=== PATIENT | male | born 1935 | race Caucasian/White ===

== ENCOUNTER 2016-03-07 11:30 | Observation (INO) | payer MEDICARE ==
[2016-03-07 12:02] LABS: ABSOLUTE NEUTROPHIL COUNT 4.2 K/mm3 (1.8-7.7); BASO % 0.2 % (0.2-1.0); EOS # 0.2 (0.0-0.5); EOS % 3.8 % (0.9-2.9); HEMATOCRIT 31.8 % (32.0-52.0); HEMOGLOBIN 10.7 gm/l (14.0-18.0); IMM NEUT% 0.2 % (0-1); LYMPH # 1.3 (1.0-4.8); LYMPH % 20.1 % (15-45); MEAN CELL VOLUME 108.5 fl (80.0-94.0); MEAN CORPUSCULAR HEMOGLOBIN 36.5 pg (27.0-31.0); MEAN CORPUSCULAR HGB CONC 33.6 g/dl (33.0-37.0); MEAN PLATELET VOLUME 10.8 fl (7.4-10.4); MONO # 0.7 (0.0-0.8); MONO % 10.3 % (4-12); NEUT % 65.4 % (43-75); PLATELET COUNT 74 K/mm3 (130-400); RED CELL DISTRIBUTION WIDTH 15.1 % (11.5-14.5)
[2016-03-07 12:19] LABS: ALB/GLOB RATIO 1.1 (>1.0); ALBUMIN 3.8 gm/dL (3.5-5.7); CALCIUM 9.6 mg/dL (8.6-10.3); MAGNESIUM 1.6 mg/dL (1.9-2.7)
[2016-03-07] MEDS ORDERED: LACTATED RINGERS 1,000 ML ONE (12:24)
[2016-03-07] MEDS ORDERED: MAGNESIUM SULFATE 1 G/100 ML 200 ML IV ONE (12:25)
--- NOTE | 2016-03-07 13:03 | RAD ---
Exam: Two-view chest COMPARISON: None INDICATION: Weakness for 2 days with cold symptoms. Cough. FINDINGS: AP and lateral views of the chest were obtained. Dual-lead pacer is present. Cardiac silhouette is within normal limits. Lungs are well-inflated. There is no focal airspace disease or pleural effusion. Bones of the chest wall within normal limits. A few bridging osteophytes are noted within the thoracic spine. IMPRESSION: No acute pulmonary process.
[2016-03-07 14:36] LABS: URINE BILIRUBIN NEGATIVE (NEGATIVE); URINE BLOOD NEGATIVE (NEGATIVE); URINE GLUCOSE (UA) NEGATIVE (NEGATIVE); URINE LEUKOCYTE ESTERASE NEGATIVE (NEGATIVE); URINE NITRITE NEGATIVE (NEGATIVE); URINE UROBILINOGEN NORMAL (0-1 mg/dl)
[2016-03-07 14:46] LABS: URINE PROTEIN NEGATIVE (NEGATIVE)
[2016-03-07 14:53] LABS: URINE APPEARANCE CLEAR; URINE COLOR DARK YELLOW
[2016-03-07] MEDS ORDERED: BLISTEX LIPSTICK 1 EACH TP PRN (15:50)
[2016-03-07] MEDS ORDERED: MENTHOL/CETYLPYRD 1 EACH LOZENGE PO PRN (15:50)
[2016-03-07] MEDS ORDERED: MAGNESIUM HYDROXIDE 30 ML UDCUP PO PRN (15:50)
[2016-03-07] MEDS ORDERED: SODIUM CHLORIDE 0.9% 100 ML IV PRN (15:50)
[2016-03-07] MEDS ORDERED: BISACODYL 10 MG SUP PR PRN (15:50)
[2016-03-07] MEDS ORDERED: BISACODYL 5 MG TABLET.EC PO PRN (15:50)
[2016-03-07] MEDS ORDERED: ACETAMINOPHEN 325 MG TABLET PO PRN (15:50)
[2016-03-07] MEDS ORDERED: PUMP TUBING ONE (16:34)
[2016-03-07 17:12] VITALS: BMI 23.5
[2016-03-07] MEDS: SODIUM CHLORIDE 0.9% 1,000 ML IV SCH (17:51)
[2016-03-07] MEDS ORDERED: POLYVINYL ALCOHOL 1.4% (TEARS) 300 GTTS/BOT SOLN.DROP OS PRN (18:09)
[2016-03-07] MEDS ORDERED: CALCIUM CARBONATE 500 MG TAB.CHEW PO PRN (19:28)
[2016-03-07] MEDS ORDERED: PREGABALIN 75 MG CAP PO SCH (21:00)
[2016-03-07] MEDS: PREGABALIN 50 MG CAP PO SCH (21:19)
[2016-03-07] MEDS: VALACYCLOVIR 500 MG TABLET PO SCH (21:19)
[2016-03-07] MEDS: DOCUSATE SODIUM 100 MG CAPSULE PO SCH (21:19)
--- NOTE | 2016-03-07 22:11 | HP ---
CHELSIE HERRING [id number] DATE OF ADMISSION: 03/07/2016 CHIEF COMPLAINT: Weakness. 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 He has had upper respiratory infection symptoms since Friday or Friday, with nasal congestion and worsening of his chronic cough. He has had progressive weakness in the last 48 hours such that he has been unable to ambulate without assistance, and normally he is independent with his activities of daily living. REVIEW OF SYSTEMS: He denies any fevers or chills. He has had some low-grade temps. He has had nasal congestion, cough and myalgias. His cough is chronic, worsened and productive. He denies chest pain. He has had no wheezing or shortness of breath. No lower extremity edema and no palpitations. He denies nausea, vomiting, abdominal pain, diarrhea or constipation. He does complain just of generalized myalgias and generalized weakness. He denies headaches, fainting, blackouts or seizures. No documented falls. No new urinary complaints, but does have benign prostatic hypertrophy and nocturia. His review of systems is otherwise negative. PAST MEDICAL HISTORY: Significant for: 1. 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 The exact diagnosis is unclear. His first diagnosis was treated about ten years ago and he was told he had recurrent disease last week, with plans to go back on chemotherapy here soon. 2. He has a history of a pacemaker, unknown indications, but no prior history of coronary artery disease. 3. He had severe shingles involving the left eye and face last March, with some postherpetic neuralgia and some visual damage as a result of the disease, followed by Dr. Chester. He has been recently diagnosed with chronic kidney disease, the etiology at this point is not clear, and it is unclear if he has had any workup. 4. He has had a history of chronic essential hypertension. 5. He has had a history of emphysema. 6. The history of skin cancers. 7. Remote history of depression. PAST SURGICAL HISTORY: Significant for: 1. Skin surgeries for skin cancers. 2 He had a pacemaker placed in January of 2015. 3. He had a screening colonoscopy sometime in the . 4. Bilateral cataract surgeries. ALLERGIES: Reported to hydrocodone or Vicodin, which caused intractable vomiting. FAMILY HISTORY: Notable for a father who had coronary artery disease in his 70's. Mother lived to be in her late 80's. There are really no significant medical problems that run in the family. SOCIAL HISTORY: The patient is and lives with his . One of their sons lives at home. He has four sons and one female child. He is supposed to use a cane, but does not. He had a walker, but does not use it, and has been resistant to using any medical assistive devices. His primary care provider is Dr. Tarun Euceda. He does have a [id number] history of smoking, and he quit 27 years ago. He denies alcohol use currently. CODE STATUS: His code status is full code at this time. PHYSICAL EXAMINATION: VITAL SIGNS: Temperature 98.7. Pulse 58. Blood pressure 135/62. Respirations 16. Oxygen saturations are 95% on room air. Body mass index is 23.5 and weight is 70.1 kilograms. GENERAL: This is an elderly male in no acute distress. HEENT: His are pupils equal, round and reactive to light. No obvious corneal lesions are seen. 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 No active drainage. NECK: Supple, without lymphadenopathy or thyromegaly. LUNGS: Clear to auscultation bilaterally. CARDIOVASCULAR: Reveals a regular rate and rhythm, without a murmur. ABDOMEN: Soft, nontender and nondistended, with positive bowel sounds. EXTREMITIES: Show no peripheral edema. Dorsalis pedis pulses are 2+ bilaterally. SKIN: Warm, dry and intact, except for the lesion on the scalp as I mentioned. NEUROLOGIC: Exam is nonfocal. DIAGNOSTIC IMAGING STUDIES: Included a chest x-ray, which showed no acute cardiopulmonary process. His cardiac silhouette is within normal limits. LABORATORY STUDIES: Included a CBC showing a white count of 6.3, hemoglobin of 10.7 and a platelet count of 74,000. Normal differential. Lactate was slightly elevated at 2.6. Chemistry profile showed a sodium of 132, potassium 4.5, carbon dioxide 22, BUN of 39, creatinine 1.8, glucose 167, magnesium slightly low at 1.6. Liver function tests are normal. Troponin-I is less than 0.01. B-type natriuretic peptide is 175. Lipase is 31. Albumin and globulin are both normal. Urine is slightly concentrated, with a specific gravity of 1.020, otherwise unremarkable. Influenza A and B antigens are both negative. EKG: Shows a paced rhythm. ASSESSMENT: 1. Patient has generalized weakness. I suspect this is multifactorial. 2. He does have evidence of an upper respiratory infection, likely viral. 3. He has evidence of dehydration, and both of these conditions may be contributing to his weakness. 4. He does have a history of some type of hematological malignancy, with evidence of thrombocytopenia on his laboratory studies. We are to obtain records from Dr. Dutta tomorrow. I doubt this is significant cause for his current symptoms and he is being cared for this as an outpatient, and do not anticipate further treatment or workup at this time. 5. He has a history of some chronic kidney disease, which has been recently diagnosed, assuming it is chronic, I do not have a baseline creatinine, but Dr. Dutta's office told them his kidneys were working at about 40%. Because of this being relatively new, I am going to go ahead and get a bladder and renal ultrasound tomorrow. 6. He has a lactic acidosis. I do not think this is related to any infectious etiology, but more likely related to his malignancy, his chronic kidney disease or dehydration. 7. He has mild hypomagnesemia, which has been replaced in the emergency department. 8. 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 9. He has some mild emphysema, but is not hypoxic or have any respiratory distress at this time. PLAN: For observation overnight, with hydration. Follow-up labs in the morning. We will get PT and OT to evaluate and treat the patient tomorrow to help determine a safe discharge plan. VTE risk is considered low. Further treatment and recommendations will depend on his hospital course. cc: Dr. Tarun Dutta
[2016-03-08] MEDS: SODIUM CHLORIDE 0.9% 1,000 ML IV SCH (01:30)
[2016-03-08 06:43] LABS: ABSOLUTE NEUTROPHIL COUNT 1.5 K/mm3 (1.8-7.7); BASO % 0.6 % (0.2-1.0); EOS # 0.2 (0.0-0.5); EOS % 4.9 % (0.9-2.9); HEMATOCRIT 26.4 % (32.0-52.0); HEMOGLOBIN 8.8 gm/l (14.0-18.0); LYMPH % 31.4 % (15-45); MEAN CELL VOLUME 107.3 fl (80.0-94.0); MEAN CORPUSCULAR HEMOGLOBIN 35.8 pg (27.0-31.0); MEAN CORPUSCULAR HGB CONC 33.3 g/dl (33.0-37.0); MEAN PLATELET VOLUME 11.3 fl (7.4-10.4); MONO # 0.5 (0.0-0.8); MONO % 16.5 % (4-12); NEUT % 46.6 % (43-75); PLATELET COUNT 61 K/mm3 (130-400); RED CELL DISTRIBUTION WIDTH 14.8 % (11.5-14.5)
[2016-03-08 07:16] LABS: CALCIUM 9.5 mg/dL (8.6-10.3)
[2016-03-08] MEDS ORDERED: TAMSULOSIN HCL 0.4 MG CAPSULE.DR PO SCH (09:00)
[2016-03-08] MEDS ORDERED: VALSARTAN 80 MG TABLET PO SCH (09:00)
[2016-03-08] MEDS ORDERED: HYDROCHLOROTHIAZIDE 25 MG TABLET PO SCH (09:00)
[2016-03-08] MEDS: PREGABALIN 50 MG CAP PO SCH ×2 (11:15→14:47)
[2016-03-08] MEDS: DOCUSATE SODIUM 100 MG CAPSULE PO SCH (11:16)
[2016-03-08] MEDS: VALACYCLOVIR 500 MG TABLET PO SCH ×2 (11:22→14:42)
[2016-03-08] MEDS: LOTEPREDNOL ETABONATE OS SCH ×2 (12:10→14:42)
--- NOTE | 2016-03-08 12:34 | PDOC43 ---
- Subjective Chief Complaint: weakness, fever Patient reports feeling hungry. Hasn't gotten up to walk or other activity. No respiratory c/o x a little cough. Not josé luis dyspneic. No abd pain. Some urinary difficulty, had a Leal placed. No fevers, chills, but just feeling a bit weak when he came in. - Objective Vital Signs Temperature 98.6 F 03/08/16 07:50 Pulse Rate 82 03/08/16 07:50 Respiratory Rate 16 03/08/16 07:50 Blood Pressure 142/55 03/08/16 07:50 O2 Saturation by Pulse Oximetry 92 03/08/16 07:50 Oxygen Delivery Method Room Air Oxygen Flow Rate 0 Vital Signs Last 12 Hours Temp Pulse Resp BP Pulse Ox 03/08/16 07:50 98.6 F 82 16 142/55 92 03/08/16 01:05 98.2 F 63 18 133/57 94 Intake and Output 03/06/16 03/07/16 03/08/16 23:59 23:59 23:59 Intake Total 1542 Output Total 1500 Balance 42 General: Alert, Cooperative, No Acute Distress HEENT: Atraumatic Lungs: Clear to Auscultation Bilaterally (fairly clear bilat) Cardiovascular: Regular Rate and Rhythm, Other (pacer in on L upper chest) Abdomen: Soft, Normal Bowel Sounds, Non-Distended, No Tenderness, No Rebounding , No Involuntary Guarding, No Bruits, No Distention Extremities: No Edema, No Tenderness Skin: Normal Color Neurological: Normal Speech Psych/Mental Status: Normal Affect Laboratory 03/08/16 06:30 03/08/16 06:30 03/08/16 06:30 RBC 2.46 L MCV 107.3 H MCH 35.8 H RDW 14.8 H BUN 30 H Estimated GFR 42 L Current Medications: Current meds reviewed in EMR. Active Medications Acetaminophen (Tylenol) 650 mg PO Q6H PRN PRN Reason: Pain or Temperature > 100.5 F Artificial Tears (Tears Naturale) 1 gtts OS Q4H PRN PRN Reason: DRY EYES Benzocaine/Menthol (Cepacol) 1 each PO PRN PRN PRN Reason: Sore Throat Bisacodyl (Dulcolax) 10 mg DE DAILY PRN PRN Reason: Constipation Bisacodyl (Dulcolax) 5 mg PO DAILY PRN PRN Reason: Constipation Calcium Carbonate/Glycine (Tums) 1,000 mg PO BID PRN PRN Reason: Indigestion Last Admin: 03/07/16 19:58 Dose: 1,000 mg Docusate Sodium (Colace) 100 mg PO BID [facility] Last Admin: 03/08/16 11:16 Dose: 100 mg Hydrochlorothiazide (Hydrochlorothiazide) 6.25 mg PO DAILY [facility] Last Admin: 03/08/16 11:16 Dose: 6.25 mg Sodium Chloride (Sodium Chloride 0.9%) 100 mls @ 25 mls/hr IV PRN PRN PRN Reason: Flush Magnesium Hydroxide (Milk Of Magnesia) 30 ml PO DAILY PRN PRN Reason: Constipation Miscellaneous (Loteprednol Etabonate [Lotemax 0.5% Ophth Oint]) 1 applic OS QID [facility] Petrolatum/Paraffin/Mineral Oil (Blistex) 1 each TP PRN PRN PRN Reason: Dry and/or chapped lips Pregabalin (Lyrica) 50 mg PO TID [facility] Stop: 03/14/16 20:59 Last Admin: 03/08/16 11:15 Dose: 50 mg Sodium Chloride (Normal Saline 10ml Flush) 10 - 50 ml IV PRN PRN PRN Reason: IV Flush Sodium Chloride (Normal Saline 10ml Flush) 10 ml IV Q8HR [facility] Last Admin: 03/08/16 09:44 Dose: 10 ml Tamsulosin HCl (Flomax) 0.4 mg PO QAM [facility] Last Admin: 03/08/16 11:15 Dose: 0.4 mg Valacyclovir HCl (Valtrex) 500 mg PO TID [facility] Last Admin: 03/08/16 11:22 Dose: 500 mg Valsartan (Diovan) 80 mg PO DAILY [facility] Last Admin: 03/08/16 11:15 Dose: 80 mg - Problems: Assessment/Plan (1) Pancytopenia Status: Acute Assessment/Plan: 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 Spoke with Dr Dutta, and pt is suspected as having a worsening of his Waldenstrom's macroglobulinemia, and was going to be started on ?Ibrutinib, 3 po qd, but hasn't started yet. Dr Dutta says a transfusion could be considered, but if pt doesn't want this, then would just have him follow up in the office next week. (2) Weakness Status: Acute Assessment/Plan: Tmax 99.2, suspect a viral illness, on top of anemia. (3) Basal cell carcinoma Status: Chronic Assessment/Plan: Large basal cell carcinoma seen on top of head. VTE Prophylaxis: encourage activity, hope to be able to DC later; appreciate PT/OT care. Would avoid enoxaparin with low platelets, consider mechanical tx.
--- NOTE | 2016-03-08 14:39 | US ---
RENALS/BLADDER COMPARISON: None. HISTORY: 81-year-old male with elevated creatinine FINDINGS: Right kidney: Normal size, length 9.6 cm by AP 3.8 cm by transverse 5.0 cm. Thin cortical thickness of 6 mm. Elevated resistive index 0.83. No hydronephrosis, stone, or mass. Left kidney: Normal size, length 8.6 cm by AP 3.9 by transverse 3.8 cm. Thin cortical thickness is 7 mm. Elevated resistive index 0.84. No stone, hydronephrosis, mass, or cyst. Ureters: Neither jet was identified in a 10 minute period. Urinary bladder: Prevoid volume normal 174 mL. Unable to void. IMPRESSION: Probable medical renal disease with bilateral elevated resistive indices. No hydronephrosis. The results were discussed with Rex Harrison III, MD 03/08/2016 at 14:35
[2016-03-08 16:00] VITALS: BP 110/56
--- NOTE | 2016-03-09 20:05 | DS ---
CHELSIE HERRING [id number] DATE OF ADMISSION: 03/07/2016 DATE OF DISCHARGE: 03/03/2016 DISCHARGE DIAGNOSES: 1. Weakness, with difficulty with ambulation. 2. History of suspected Waldenstrom's macroglobulinemia. 3. Pancytopenia attributed to Waldenstrom's. 4. Dehydration, mild. 5. Suspected viral illness. 6. Chronic kidney disease. 7. Elevated lactate on admission. 8. Mild hypomagnesemia. 9. History of postherpetic neuralgia. 10. Mild emphysema. 11. Basal cell carcinoma in the scalp. REASON FOR ADMISSION: The patient is an 81-year-old male with a known Waldenstrom's macroglobulinemia who presented regarding weakness. He was seen in the emergency department and noted to have a white blood cell count of 6.3, hemoglobin 10.7, MCV of 108.5 and platelets 74. Lactate was 2.6. Chemistry profile with a sodium of 132, potassium 4.5, BUN of 39, creatinine 1.8, glucose 167, calcium 9.6 and magnesium 1.6. Liver enzymes are normal. Troponin less than 0.01. Lipase 31. BNP of 175. Urinalysis was unremarkable. Influenza testing is negative. The patient had a chest x-ray that was normal as well. The patient was referred to the Hospitalist Service, received IV fluids and was observed. He underwent ultrasound of the kidneys, which showed some probable medical renal disease with bilateral elevated resistive indices, but no hydronephrosis. The patient had a Leal placed due to some urinary retention and had an unremarkable night. Follow-up exam was unremarkable and his follow-up labs showed a white count of 3.3, hemoglobin 8.8 and platelets 61. Creatinine improved to 1.6. The patient was very eager for discharge. He had declined blood transfusion. Discussion was carried-out with Dr. Dutta and he felt it was acceptable to follow-up in clinic next week. DISCHARGE MEDICATIONS: The patient is anticipated to be discharged on his regular medicines, that bein. Refresh Plus as needed. 2. Lotemax drops four times a day. 3. Pregabalin 75 mg by mouth twice a day. 4. Tamsulosin 0.4 mg every A.M. 5. Kenalog topically twice a day. 6. Valacyclovir 500 mg by mouth three times a day. 7. Valsartan/hydrochlorothiazide 160/12.5, half by mouth daily. PLAN: He is to follow-up with Dr. Dutta next week, and Dr. Dutta had indicated that they would be discussing whether to use ibrutinib. He is to follow-up if having worsening urinary difficulties and to be cautious getting-up. cc: Dr. Amado Euceda
== END 2016-03-08 16:25 | disposition home or self-care (01) ==
LOC: ED 11:30 → MS 15:51
PROVIDERS: ADMIT Family Medicine; ATTEND Family Medicine
DX: C44.41 Basal cell carcinoma of skin of scalp and neck (principal); Z95.0 Presence of cardiac pacemaker; I25.10 Atherosclerotic heart disease of native coronary artery without angina pectoris; B02.29 Other postherpetic nervous system involvement; J43.9 Emphysema, unspecified; F32.9 Major depressive disorder, single episode, unspecified; J06.9 Acute upper respiratory infection, unspecified; E87.2 Acidosis; E83.42 Hypomagnesemia; C88.0 Waldenstrom macroglobulinemia; I12.9 Hypertensive chronic kidney disease with stage 1 through stage 4 chronic kidney disease, or unspecified chronic kidney disease; N18.9 Chronic kidney disease, unspecified
CPT/HCPCS: 83605; 83690; 83880; 85025 ×2; 87040; 80048; 80053; 83735 ×2; 81003; 84484; 36415; 71020; 87804; 76770; 97165; 99284; 96365; 96366 ×3; 93005; 99285; A9270 ×10; J3475; J7120; J7030 ×2